=== PATIENT | female | born 1955 | race Caucasian/White ===

== ENCOUNTER 2021-12-21 06:22 | Day surgery (SDC) | payer OTHER ==
[2021-12-21] MEDS ORDERED: Lactated Ringers 1,000 ML IV ONE ×2 (06:44→07:13)
[2021-12-21] MEDS ORDERED: Reglan 10 MG/2 ML IV ONE (07:09)
[2021-12-21] MEDS ORDERED: Versed 2 MG/2 ML Injection IV PRN (07:09)
[2021-12-21] MEDS ORDERED: Pepcid 20 MG VIAL IV ONE ×2 (07:09→07:12)
[2021-12-21] MEDS ORDERED: Versed 2 MG/2 ML Injection ONE (07:12)
[2021-12-21] MEDS ORDERED: Reglan 10 MG/2 ML ONE (07:12)
[2021-12-21] MEDS ORDERED: CLINDAMYCIN-D5W 900 MG/50 ML*** 900 MG/50 ML BAG IV ONE (07:12)
[2021-12-21] MEDS ORDERED: CLINDAMYCIN-D5W 900 MG/50 ML*** 900 MG/50 ML BAG IV SCH (07:30)
[2021-12-21] MEDS ORDERED: Lactated Ringers 1,000 ML IV SCH (07:30)
[2021-12-21] MEDS ORDERED: Xylocaine-Mpf 2% 5 Ml Vial ONE (10:08)
[2021-12-21] MEDS ORDERED: Zofran 4 MG/2 ML VIAL ONE (10:08)
[2021-12-21] MEDS ORDERED: Zemuron 100 MG/10 ML ONE (10:08)
[2021-12-21] MEDS ORDERED: DIPRIVAN 200 MG/20 ML IV ONE (10:08)
[2021-12-21] MEDS ORDERED: Decadron 4 MG INJ ONE ×2 (10:08→12:06)
[2021-12-21] MEDS ORDERED: Quelicin Fliptop 200 MG/10 ML ONE (10:08)
[2021-12-21] MEDS ORDERED: SUBLIMAZE 100 MCG/2 ML ONE ×2 (10:09→13:36)
[2021-12-21] MEDS ORDERED: OFIRMEV 100 ML IV ONE (10:25)
[2021-12-21] MEDS ORDERED: Pre-Attached Lta Kit TP ONE (10:25)
[2021-12-21] MEDS ORDERED: Ephedrine Sulfate 50 MG/ML ONE (10:59)
[2021-12-21] MEDS ORDERED: Naropin 0.5% 30 ML VIAL ONE (12:06)
[2021-12-21] MEDS ORDERED: BRIDION 200MG/2ML IV ONE (12:27)
--- NOTE | 2021-12-21 12:44 | XRAY ---
Indication: Right calcaneal exostectomy. Intraoperative fluoroscopy provided for 36 seconds. 8 digital spot images submitted for interpretation demonstrates posterior calcaneal exostectomy. Correlate with intraoperative findings/report.
--- NOTE | 2021-12-21 14:05 | XRAY ---
36 seconds of fluoroscopy was used in surgery for a calcaneal exostectomy of right foot.
[2021-12-21 14:59] VITALS: BP 115/77; PULSE 69; O2SAT 97
--- NOTE | 2021-12-24 15:34 | OP ---
SURGERY DATE: 12/21/2021 SURGERY TIME: 1030 PREOPERATIVE DIAGNOSIS: 1. RIGHT FOOT PAIN. 2. CALCANEAL POSTERIOR SUPERIOR EXOSTOSIS. 3. ACHILLES TENDONITIS. 4. RETROCALCANEAL BURSITIS. POSTOPERATIVE DIAGNOSIS: 1. RIGHT FOOT PAIN. 2. CALCANEAL POSTERIOR SUPERIOR EXOSTOSIS. 3. ACHILLES TENDONITIS. 4. RETROCALCANEAL BURSITIS. PROCEDURE: 1. POSTERIOR SUPERIOR CALCANEAL EXOSTECTOMY. 2. REPAIR OF ACHILLES TENDON WITH DEBRIDEMENT AND ADVANCEMENT. SURGEON: Roland Heller D.P.M. AIRCRAFT SYSTEMS TECHNICIAN: None. ANESTHESIA: General plus a postoperative regional block. See anesthesia report for details. HEMOSTASIS: A thigh tourniquet set to 350 mm Hg for 70 minutes total tourniquet time. ESTIMATED BLOOD LOSS: Less than 5 cc. INJECTABLES: See anesthesia report for details. INDICATIONS FOR PROCEDURE: Henrietta is a very pleasant 65 y/o female who presented to my clinic with concerns over an extremely painful bump at the posterior aspect of her right foot. The patient indicates she has had this bump for some period of time. However, it has caused her more and more significant pain as she has been walking. She has failed physical therapy and conservative modalities of treatment for this issue and wishes to proceed with resection of the spurring at the posterior aspect of her heel as well as the calcaneal exostosis. The patient understands all risks, complications, and benefits which were described in this case to her in depth. The patient understands that there is a risk of infection, hematoma, seroma, possibility of delayed skin healing, delayed tendon to bone healing, and possible deep vein thrombosis due to working on the Achilles tendon as well as immobilization for any period of time postoperatively. Patient understands all these risks and wishes to proceed with surgical intervention. No guarantees were provided as to the outcome. It is with that we decided to proceed. DESCRIPTION OF PROCEDURE: The patient was brought into the OR. The patient was sedated on the cart. A thigh tourniquet was applied to the patient's right thigh and the patient was then transferred to the table in the prone position. At this time, the patient's right lower extremity was prepped and draped in the typical sterile fashion and lowered onto the surgical field. At this time, an Esmarch was utilized to exsanguinate the leg and the tourniquet was set to 350 mm Hg. At this time, a linear incision approximately 8 cm in length was performed at the area approximately 5 cm above the Achilles tendon attachment down to the plantar aspect of the heel. At this time, dissection was carried to the level of the peritenon with a full thickness flap and then reflected at the medial and lateral aspects. At this time, the Achilles tendon was measured and a linear incision was made 5 cm correlating with the amount of tendinosis that was seen on the MRI down to the insertion of the Achilles tendon on the posterior heel. At this time, an inverted T-type incision was carried out at the plantar aspect of the calcaneus and the Achilles tendon was reflected off of the heel bone. The Achilles tendon was debrided of any diseased appearing tissue until the thickness was debulked as well as the infected tissue appeared to be completely removed. Posterior to the Achilles tendon, the retrocalcaneal bursa was identified and appeared to be significantly inflamed and this was removed as well. At this time, attention was directed to the calcaneus where the posterior spur was first resected utilizing a sagittal saw and then the Erin's deformity was resected utilizing the same sagittal saw. This was checked under fluoroscopic guidance and deemed to be adequate. A power rasp was utilized to smooth the bone to a smooth surface and rough in the interface for the tendon attachment and regrowth throughout the healing process. At this time, the proximal JuggerKnots were grown into the calcaneus in a converging type fashion and advanced through the distal limbs of the Achilles tendon. Following this, these limbs were secured utilizing two 4.5 Quattro links in the distal aspect of the calcaneus in an inverted row type fashion. Following this, the central split of the Achilles tendon was debrided and repaired utilizing 2-0 Vicryl. Following this, 4-0 Vicryl was utilized to repair the peritenon and then following this, the subcutaneous tissue of the incision was repaired utilizing the 4-0 Monocryl as well. was utilized to coapt the skin edges. Tourniquet was left on at a total of 70 minutes total tourniquet time. A dressing consisting of Betadine, Adaptic, 4 X 4, Kerlex, and a well-padded posterior splint was applied to the patient's right leg. Patient was then provided a postoperative popliteal block. Patient then was reversed from anesthesia and returned to the PACU with vital signs stable and vascular status intact. The patient handled the anesthesia as well as the procedure without significant complication. Postoperative orders as indicated in the patient's discharge chart.
== END 2021-12-21 15:17 | disposition home or self-care (01) ==
LOC: SDC 06:22
PROVIDERS: ATTEND Podiatrist Foot & Ankle Surgery
DX: M76.61 Achilles tendinitis, right leg (principal); M79.671 Pain in right foot; M89.8X7 Other specified disorders of bone, ankle and foot; M77.51 Other enthesopathy of right foot and ankle
CPT/HCPCS: 27654; 28120; 64450; 64486; 73630; 76000; 76937; 76942; C1713; J0330; J1100; J2250; J2405; J2704; J2795; J3010

== ENCOUNTER 2024-02-18 12:13 | Observation (INO) | payer OTHER ==
--- NOTE | 2024-02-18 12:54 | ERPHSYRPT ---
- History of Present Illness Time Seen by Provider: 02/18/24 12:20 Source: patient, family Patient Subjective Stated Complaint: Dizziness. Triage Nursing Assessment: Patient brought into ED per EMS and transferred to bed with assist of 1. Patient A+O X 3. Patient's skin pink, warm and dry. Patient states she was at work and started feeling dizzy and like she was going to pass out. Patient states she had a headache yesterday and this am, but currently no pain. Patient reports her left ear feeling funny this am but denies pain or left ear. Patient stated she feels like she is spinning around the room. Patient denies pain or discomfort. Patient was nauseated when EMS picked up. Physician History: 68 years old female presented to the ER via EMS with complaints of feeling dizziness since morning, weak all over, spinning sensation and near syncopal episode prior to arrival. Patient reports she was having some nausea and dry heaving but no vomiting. Does report having some funny feeling in the left ear as well. Denies any chest pain palpitations or shortness of breath. Denies any visual disturbance, numbness tingling or focal weakness. Patient reports she feels even now with lying down that she is going to pass out. She has negative orthostatics and EKG is sinus rhythm with no ST elevations. Allergies/Adverse Reactions: Penicillins Allergy (Verified 02/18/24 12:18) Sulfa (Sulfonamide Antibiotics) Allergy (Verified 02/18/24 12:18) hormone Adverse Reaction (Uncoded 02/18/24 12:18) Home Medications: No Reportable Medications [No Reported Medications] 02/18/24 [History] Hx Influenza Vaccination/Date Given: Yes Hx Pneumococcal Vaccination/Date Given: No Immunizations Up to Date: Yes Travel Risk - International Travel Have you traveled outside of the country in past 3 weeks: No - Emerging Infectious Disease Are you exhibiting symptoms associated with any current EIDs: No - Review of Systems Constitutional: Fatigue, Weakness Eyes: No Symptoms Ears, Nose, & Throat: Ear Pain Respiratory: No Symptoms Cardiac: No Symptoms Abdominal/Gastrointestinal: Nausea Genitourinary Symptoms: No Symptoms Musculoskeletal: No Symptoms Skin: No Symptoms Neurological: Dizziness Psychological: No Symptoms Hematologic/Lymphatic: No Symptoms Immunological/Allergic: No Symptoms - Past Medical History Pertinent Past Medical History: Yes Neurological History: No Pertinent History ENT History: No Pertinent History Cardiac History: No Pertinent History Respiratory History: No Pertinent History Endocrine Medical History: No Pertinent History Musculoskeletal History: Osteoarthritis GI Medical History: Hernia History: No Pertinent History Psycho-Social History: No Pertinent History Female Reproductive Disorders: No Pertinent History Other Medical History: OA ON THE CALCANEOUS OF THE R FOOT. R KNEE OA. - Past Surgical History Past Surgical History: Yes Neuro Surgical History: No Pertinent History Cardiac: No Pertinent History Respiratory: No Pertinent History Gastrointestinal: Cholecystectomy Genitourinary: No Pertinent History Musculoskeletal: Other Female Surgical History: Hysterectomy, Section Other Surgical History: left knee surgery - Social History Smoking Status: Never smoker Exposure to second hand smoke: No Drug Use: none - Social Determinants of Health Will the patient participate in the screening: Yes Do you worry about a steady place to live?: No Do you have any problems with any of the following?: No known problems In the past 12 months,have you had to go without utilities?: No Transportation Issues: No Has anyone in your support network made you feel unsafe?: No Have you or anyone in your house had to go without enough: No - Nursing Vital Signs Nursing Vital Signs: Initial Vital Signs Temperature 97.6 F 02/18/24 12:24 Pulse Rate 71 02/18/24 12:24 Respiratory Rate 18 02/18/24 12:24 Blood Pressure 131/59 02/18/24 12:24 O2 Sat by Pulse Oximetry 96 02/18/24 12:24 Pain Scale Pain Intensity 0 - [place] Coma Scale Best Eye Response ([place]): (4) open spontaneously Best Verbal Response ([place]): (5) oriented Best Motor Response ([place]): (6) obeys commands [place] Total: 15 - Physical Exam General Appearance: no apparent distress, alert Eye Exam: bilateral eye: normal inspection, PERRL, EOMI Ears, Nose, Throat Exam: normal ENT inspection Neck Exam: normal inspection, non-tender, supple, full range of motion, No meningismus Respiratory: normal breath sounds, lungs clear Cardiovascular: regular rate/rhythm, normal heart sounds Gastrointestinal: soft, normal bowel sounds, No tenderness Back Exam: normal inspection, normal range of motion Extremity Exam: normal inspection, normal range of motion Mental Status: alert, oriented x 3, 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 Exam: normal hearing, normal speech, PERRL, abnormal eye position Coordination/Gait: normal finger to nose, normal gait, normal cerebellar function, negative Romberg's sign Motor/Sensory: no motor deficit, no sensory deficit, no pronator drift, negative Babinski's sign DTR: bicep (R): 2+, bicep (L): 2+, knee (R): 2+, knee (L): 2+ Skin Exam: normal color SpO2 Interpretation: normal SpO2: 96 O2 Delivery: Room Air - Course EKG Interpreted by Me: RATE (73), Sinus Rhythm, NORMAL AXIS, NORMAL INTERVALS, Non-specific ST Changes Ordered Tests: Active Orders 24 hr Category Date Time Status Produce Field Merchandiser STAT Care 02/18/24 12:52 Active EKG-ER Only STAT Care 02/18/24 12:51 Active IV Insertion STAT Care 02/18/24 12:51 Active Orthostatic Vital Signs STAT Care 02/18/24 12:51 Active CHEST 1 VIEW (PORTABLE) Stat Exams 02/18/24 12:51 Completed HEAD WITHOUT CONTRAST [CT] Stat Exams 02/18/24 12:52 Completed CBC W DIFF Stat Lab 02/18/24 13:06 Completed CMP Stat Lab 02/18/24 13:00 Completed Lactic Acid Stat Lab 02/18/24 13:12 Completed MAGNESIUM Stat Lab 02/18/24 13:00 Completed TROPONIN Q4H Lab 02/18/24 13:00 Completed TROPONIN Q4H Lab 02/18/24 17:00 Ordered TROPONIN Q4H Lab 02/18/24 21:00 Ordered UA W/RFX UR CULTURE Stat Lab 02/18/24 13:06 Completed Medication Summary Discontinued Medications Generic Name Dose Route Start Last Admin Trade Name Angelq PRN Reason Stop Dose Admin Sodium Chloride 1,000 mls @ 999 mls/hr 02/18/24 12:51 02/18/24 13:07 Sodium Chloride 0.9% 1000 Ml IV 02/18/24 13:51 999 mls/hr .Q1H1M STA Administration Sodium Chloride Confirm 02/18/24 12:56 Sodium Chloride 0.9% 1000 Ml Administered 02/18/24 12:57 Dose 1,000 mls @ ud .ROUTE .STK-MED ONE Meclizine HCl 25 mg 02/18/24 12:51 02/18/24 13:08 Meclizine Hcl 25 Mg Tablet PO 02/18/24 12:52 25 mg STAT ONE Administration Meclizine HCl Confirm 02/18/24 12:56 Meclizine Hcl 25 Mg Tablet Administered 02/18/24 12:57 Dose 25 mg .ROUTE .STK-MED ONE Metoclopramide HCl 10 mg 02/18/24 13:04 02/18/24 13:09 Metoclopramide Hcl 10 Mg/2 Ml Vial IV 02/18/24 13:05 10 mg STAT ONE Administration Metoclopramide HCl Confirm 02/18/24 13:05 Metoclopramide Hcl 10 Mg/2 Ml Vial Administered 02/18/24 13:06 Dose 10 mg .ROUTE .STK-MED ONE Ondansetron HCl 4 mg 02/18/24 12:52 02/18/24 13:05 Ondansetron Hcl 4 Mg/2 Ml Vial IV 02/18/24 12:53 Not Given STAT ONE Ondansetron HCl Confirm 02/18/24 12:56 Ondansetron Hcl 4 Mg/2 Ml Vial Administered 02/18/24 12:57 Dose 4 mg .ROUTE .STK-MED ONE Lab/Rad Data: Laboratory Result Diagrams 02/18/24 13:06 02/18/24 13:00 Laboratory Results 02/18/24 02/18/24 02/18/24 Range/Units 13:12 13:06 13:06 WBC 9.0 (3.98-10.04) x10^3/uL RBC 4.61 (3.93-5.22) x10^6/uL Hgb 13.9 (11.2-15.7) g/dL Hct 43.4 (34.1-44.9) % MCV 94.1 (79.4-94.8) fL MCH 30.2 (25.6-32.2) pg MCHC 32.0 L (32.2-35.5) g/dL RDW 11.9 (11.7-14.4) % Plt Count 189 (182-369) x10^3/uL MPV 9.7 (9.4-12.3) fL Gran % 68.6 (34.0-71.1) % Immature Gran % (Auto) 0.4 (0.001-0.429) % Nucleat RBC Rel Count 0.0 (0.00-0.2) % Eos # (Auto) 0.11 (0.04-0.36) x10^3/uL Immature Gran # (Auto) 0.04 H (0.001-0.031) x10^3u/L Absolute Lymphs (auto) 2.11 (1.18-3.74) x10^3/uL Absolute Monos (auto) 0.51 (0.24-0.86) x10^3/uL Absolute Nucleated RBC 0.00 (0.00-0.012) x10^3u/L Lymphocytes % 23.5 (19.3-51.7) % Monocytes % 5.7 (4.7-12.5) % Eosinophils % 1.2 (0.7-5.8) % Basophils % 0.6 (0.1-1.2) % Absolute Granulocytes 6.14 H (1.56-6.13) x10^3/uL Basophils # 0.05 (0.01-0.08) x10^3/uL Sodium (135-145) mmol/L Potassium (3.5-5.1) mmol/L Chloride (98-107) mmol/L Carbon Dioxide (22-30) mmol/L Anion Gap (5-15) MEQ/L BUN (7-17) mg/dL Creatinine (0.52-1.04) mg/dL Estimated GFR ML/MIN Glucose (74-106) mg/dL Lactic Acid 1.1 (0.4-2.0) Calcium (8.4-10.2) mg/dL Magnesium (1.6-2.3) mg/dL Total Bilirubin (0.2-1.3) mg/dL AST (14-36) U/L ALT (0-35) U/L Alkaline Phosphatase (38-126) U/L Troponin I (0.000-0.033) ng/mL Serum Total Protein (6.3-8.2) g/dL Albumin (3.5-5.0) g/dL Urine Color (Yellow) Urine Appearance (Clear) Urine pH (4.6-8.0) Ur Specific [place] (1.005-1.030) Urine Protein (Negative) Urine Glucose (UA) (Negative) mg/dL Urine Ketones (Negative) Urine Blood (Negative) Urine Nitrite (Negative) Urine Bilirubin (Negative) Urine Urobilinogen (0.2) mg/dL Ur Leukocyte Esterase (Negative) U Hyaline Cast (Auto) (0-2) /LPF Urine Microscopic RBC (0-5) /HPF Urine Microscopic WBC (0-5) /HPF Ur Epithelial Cells (None Seen) /HPF Urine Bacteria (None Seen) /HPF Urine Culture Reflexed (NO) Influenza Type A Ag NEGATIVE (NEGATIVE) Influenza Type B Ag NEGATIVE (NEGATIVE) RSV (PCR) NEGATIVE (NEGATIVE) SARS-CoV-2 (PCR) NEGATIVE (NEGATIVE) 02/18/24 02/18/24 02/18/24 Range/Units 13:06 13:00 13:00 WBC (3.98-10.04) x10^3/uL RBC (3.93-5.22) x10^6/uL Hgb (11.2-15.7) g/dL Hct (34.1-44.9) % MCV (79.4-94.8) fL MCH (25.6-32.2) pg MCHC (32.2-35.5) g/dL RDW (11.7-14.4) % Plt Count (182-369) x10^3/uL MPV (9.4-12.3) fL Gran % (34.0-71.1) % Immature Gran % (Auto) (0.001-0.429) % Nucleat RBC Rel Count (0.00-0.2) % Eos # (Auto) (0.04-0.36) x10^3/uL Immature Gran # (Auto) (0.001-0.031) x10^3u/L Absolute Lymphs (auto) (1.18-3.74) x10^3/uL Absolute Monos (auto) (0.24-0.86) x10^3/uL Absolute Nucleated RBC (0.00-0.012) x10^3u/L Lymphocytes % (19.3-51.7) % Monocytes % (4.7-12.5) % Eosinophils % (0.7-5.8) % Basophils % (0.1-1.2) % Absolute Granulocytes (1.56-6.13) x10^3/uL Basophils # (0.01-0.08) x10^3/uL Sodium 137 (135-145) mmol/L Potassium 3.5 (3.5-5.1) mmol/L Chloride 100 (98-107) mmol/L Carbon Dioxide 28 (22-30) mmol/L Anion Gap 12.3 (5-15) MEQ/L BUN 23 H (7-17) mg/dL Creatinine 0.66 (0.52-1.04) mg/dL Estimated GFR 96.7 ML/MIN Glucose 122 H (74-106) mg/dL Lactic Acid (0.4-2.0) Calcium 9.5 (8.4-10.2) mg/dL Magnesium 2.1 (1.6-2.3) mg/dL Total Bilirubin 0.90 (0.2-1.3) mg/dL AST 29 (14-36) U/L ALT 24 (0-35) U/L Alkaline Phosphatase 79 (38-126) U/L Troponin I < 0.012 (0.000-0.033) ng/mL Serum Total Protein 8.0 (6.3-8.2) g/dL Albumin 4.7 (3.5-5.0) g/dL Urine Color Yellow (Yellow) Urine Appearance Turbid A (Clear) Urine pH 8.0 (4.6-8.0) Ur Specific [place] 1.020 (1.005-1.030) Urine Protein Negative (Negative) Urine Glucose (UA) Negative (Negative) mg/dL Urine Ketones Trace A (Negative) Urine Blood Negative (Negative) Urine Nitrite Negative (Negative) Urine Bilirubin Negative (Negative) Urine Urobilinogen 0.2 (0.2) mg/dL Ur Leukocyte Esterase Negative (Negative) U Hyaline Cast (Auto) NONE SEEN (0-2) /LPF Urine Microscopic RBC 0-2 (0-5) /HPF Urine Microscopic WBC 3-5 (0-5) /HPF Ur Epithelial Cells None Seen (None Seen) /HPF Urine Bacteria None Seen (None Seen) /HPF Urine Culture Reflexed NO (NO) Influenza Type A Ag (NEGATIVE) Influenza Type B Ag (NEGATIVE) RSV (PCR) (NEGATIVE) SARS-CoV-2 (PCR) (NEGATIVE) - Progress Progress: improved Progress Note: 02/18/24 15:26 68 years old is evaluated in the ER for vertiginous symptoms with near syncopal episode prior to arrival. Patient has essentially nonfocal neuroexam throughout stay in the ER. EKG is normal sinus rhythm with no acute ischemic changes and negative troponins. Normal white count, fairly unremarkable chemistries. No UTI. CT head and chest x-ray are negative for any acute findings. She is given meclizine along with Reglan and fluids, feeling much improved on reevaluation but still feels a little dizzy. I suspect peripheral vertigo with her left inner ear symptoms but patient syncope needs further workup. Discussed with Dr. Feng and patient is being admitted for observation. I have shared the results of workup with patient and family and plan of admission which they understand and agree. Discussed with .: Justice Will see patient in: hospital (observation) Counseled pt/family regarding: diagnosis, need for follow-up, rad results Medical Desision Making - Independent Historian Additional History obtained from: Child, Hospice Registered Nurse/EMT - Discussion of managment Care discussed with:: hospitalist Reviewed:: Test results Agreed on:: Treatment plan, place in obs Will see patient: in hospital - Diagnostic Testing Diagnostic test were ordered, analyzed, and reviewed by me: Yes Radiological Interpretation: Reviewed by me, Teleradiologist Report - Risk of complications The pt has a mod risk of morbidity or mortality based on: Need for prescription drug management The pt has a high risk of morbidity or mortality based on: Decision regarding hospitilization or escalation of hosp level of care - Departure Departure Disposition: Observation Clinical Impression: Near syncope, Dizziness Condition: Stable Critical Care Time: No Referrals: JERI GATICA MD [Primary Care Provider] - Follow up/PCP as directed
[2024-02-18] MEDS ORDERED: Sodium Chloride 0.9% 1000 ML 1,000 ML ONE (12:56)
[2024-02-18] MEDS ORDERED: ANTIVERT 25 MG ONE (12:56)
[2024-02-18] MEDS ORDERED: Zofran 4 MG/2 ML VIAL ONE (12:56)
[2024-02-18] MEDS ORDERED: Reglan 10 MG/2 ML ONE (13:05)
[2024-02-18] MEDS: Zofran 4 MG/2 ML VIAL IV ONE (13:05)
[2024-02-18] MEDS: Sodium Chloride 0.9% 1000 ML 1,000 ML IV STA (13:07)
[2024-02-18] MEDS: ANTIVERT 25 MG PO ONE (13:08)
[2024-02-18] MEDS: Reglan 10 MG/2 ML IV ONE (13:09)
[2024-02-18 13:28] LABS: Absolute Neutrophil Ct (ANC) 6.14 x10^3/uL (1.56-6.13); BASOPHIL % 0.6 % (0.1-1.2); Basophil (Absolute #) 0.05 x10^3/uL (0.01-0.08); Eosinophil % 1.2 % (0.7-5.8); Eosinophil (Absolute #) 0.11 x10^3/uL (0.04-0.36); Hematocrit 43.4 % (34.1-44.9); Hemoglobin 13.9 g/dL (11.2-15.7); IMMATURE GRAN # 0.04 x10^3u/L (0.001-0.031); IMMATURE GRAN % 0.4 % (0.001-0.429); Lymphocyte (Absolute #) 2.11 x10^3/uL (1.18-3.74); Lymphocytes % 23.5 % (19.3-51.7); Mean Cell Volume 94.1 fL (79.4-94.8); Mean Corpuscular Hemoglobin 30.2 pg (25.6-32.2); Mean Platelet Volume 9.7 fL (9.4-12.3); Monocyte (Absolute #) 0.51 x10^3/uL (0.24-0.86); Monocytes % 5.7 % (4.7-12.5); Neutrophil % 68.6 % (34.0-71.1); Platelet Count 189 x10^3/uL (182-369); Red Blood Count 4.61 x10^6/uL (3.93-5.22); Red Cell Distribution Width 11.9 % (11.7-14.4)
[2024-02-18 13:31] LABS: Appearance Turbid (Clear); Bacteria None Seen /HPF (None Seen); Bilirubin Negative (Negative); Blood Negative (Negative); Epithelial Cells None Seen /HPF (None Seen); Glucose, Urine Negative (Negative); Hyaline Casts NONE SEEN /LPF (0-2); Ketones Trace (Negative); Leukocyte Esterase Negative (Negative); Nitrite Negative (Negative); Protein,Urine Dip Negative (Negative); RBC 0-2 /HPF (0-5); Urobilinogen 0.2 mg/dL (0.2)
[2024-02-18 13:35] LABS: ALBUMIN 4.7 g/dL (3.5-5.0); ANION GAP 12.3 MEQ/L (5-15); BILIRUBIN,TOTAL 0.9 mg/dL (0.2-1.3); Calcium 9.5 mg/dL (8.4-10.2); Creatinine 1 0.66 mg/dL (0.52-1.04); EST GLOMERULAR FILTRATION RATE 96.7 ML/MIN; MAGNESIUM 2.1 mg/dL (1.6-2.3); Potassium 3.5 mmol/L (3.5-5.1)
[2024-02-18 13:58] LABS: INFLUENZA A NEGATIVE (NEGATIVE); INFLUENZA B NEGATIVE (NEGATIVE); RESPIRATORY SYNCTIAL VIRUS NEGATIVE (NEGATIVE); SARS-CoV-2 Xpert Express NEGATIVE (NEGATIVE)
--- NOTE | 2024-02-18 14:19 | XRAY ---
CLINICAL HISTORY: dizziness/near syncope COMPARISON: No prior studies are available for comparison. TECHNIQUE: An X-ray image of the chest is obtained in AP poratble projection. FINDINGS: Pulmonary Parenchyma: Lungs are clear bilaterally. No evidence of consolidation, collapse, or focal opacities. No pulmonary nodules are identified. No evidence of pleural effusion or pleural thickening. An elevated right diaphragmatic cupola is seen. Heart and Mediastinum: Heart size and shape are normal. No mediastinal widening or masses. No hilar or mediastinal lymphadenopathy. Bony Thorax: Bony thorax appears intact without fractures or deformities. Soft Tissues: Soft tissues overlying the chest wall are unremarkable. IMPRESSION: 1. An elevated right diaphragmatic cupola is seen. 2. No acute cardiopulmonary abnormalities are identified. Electronically Signed by: Jessa Medina MD. (02/18/2024 14:15:45 EST)
--- NOTE | 2024-02-18 14:41 | XRAY ---
CLINICAL HISTORY: near syncope/dizziness COMPARISON: None. TECHNIQUE: Axial non-contrast CT scan of the brain was performed from the skull base to the high parietal region. One of the following dose reduction techniques were utilized for this exam: Automated exposure control, adjustment of the mA and/or kV according to patient size, use of iterative reconstruction. FINDINGS: Brain Parenchyma: Normal attenuation of the cerebral hemispheres, cerebellum, and brainstem. No evidence of acute infarct or mass effect. Ventricular System: Ventricles are normal in size and configuration. No evidence of hydrocephalus or ventricular enlargement. Subarachnoid Spaces: Normal sulci and cisterns. No evidence of subarachnoid hemorrhage or extra-axial fluid collections. Cerebellum and Brainstem: Normal size and signal. No masses, lesions, or areas of abnormal signal. Orbits: Normal appearance of the globes, optic nerves, and extraocular muscles. No evidence of orbital masses or abnormal signals. Bilateral optic head calcific foci noted senile changes Sinuses: Clear paranasal sinuses. No evidence of sinusitis or mucosal thickening. Mastoid Air Cells: Clear mastoid air cells. No evidence of mastoiditis. Skull and Meninges: Normal skull morphology. IMPRESSION: 1. No acute intracranial abnormalities. 2. Normal non-contrast CT scan of the brain. Electronically Signed by: Jessa Medina MD. (02/18/2024 14:38:10 EST)
--- NOTE | 2024-02-18 15:56 | PCM.HP ---
History of Present Illness - Chief Complaint Chief Complaint: Dizziness/near syncope Date: 02/18/24 History of Present Illness: is a 68 year old female with PMHX of OA and hernia. She presented to the ER today via EMS with complaints of feeling dizziness since morning, weak all over, spinning sensation and near syncopal episode prior to arrival. Patient reports she was having some nausea and dry heaving but no vomiting. Does report having some funny feeling in the left ear as well. Denies any chest pain palpitations or shortness of breath. Denies any visual disturbance, numbness tingling or focal weakness. Ine the ER patient reported she felt it e olga with lying down that she is going to pass out. In the ER she had negative orthostatics and EKG sinus rhythm with no ST elevations. She feels all of her sxs have resolved since admission. Will continue medication for nausea and IVF. Will monitor trops and place on tele. Will obtain echo and carotid duplex. Will have PT eval tomorrow. Will likely d/c tomorrow if no abnormal findings. - Review of Systems Constitutional: No Fever, No Chills Eyes: No Symptoms Ears, Nose, & Throat: No Symptoms Respiratory: No Cough, No Short Of Breath Cardiac: No Chest Pain, No Edema, No Syncope Abdominal/Gastrointestinal: Nausea, No Abdominal Pain, No Vomiting, No Diarrhea Genitourinary Symptoms: No Dysuria Musculoskeletal: No Back Pain, No Neck Pain Skin: No Rash Neurological: Dizziness, No Focal Weakness, No Sensory Changes Psychological: No Symptoms Endocrine: No Symptoms Hematologic/Lymphatic: No Symptoms Immunological/Allergic: No Symptoms Medications & Allergies Home Medications: Home Medication List No Reportable Medications [No Reported Medications] 02/18/24 [History Confirmed 02/18/24] Allergies/Adverse Reactions: Allergies Allergy/AdvReac Type Severity Reaction Status Date / Time Penicillins Allergy Verified 02/18/24 12:18 Sulfa (Sulfonamide Allergy Verified 02/18/24 12:18 Antibiotics) hormone AdvReac Uncoded 02/18/24 12:18 - Past Medical History Past Medical History: Yes Neurological History: No Pertinent History ENT History: No Pertinent History Cardiac History: No Pertinent History Respiratory History: No Pertinent History Endocrine Medical History: No Pertinent History Musculoskelatal History: Osteoarthritis GI Medical History: Hernia History: No Pertinent History Pyscho-Social History: No Pertinent History Reproductive Disorders: No Pertinent History Comment: OA ON THE CALCANEOUS OF THE R FOOT. R KNEE OA. - Past Surgical History Past Surgical History: Yes Neuro Surgical History: No Pertinent History Cardiac History: No Pertinent History Respiratory Surgery: No Pertinent History GI Surgical History: Cholecystectomy Genitourinary Surgical Hx: No Pertinent History Musculskeletal Surgical Hx: Other Female Surgical History: Hysterectomy, Section Other Surgical History: left knee surgery Significant Family History: no pertinent family hx - Social History Smoking Status: Never smoker Exposure to second hand smoke: No Alcohol: None Drug Use: none - Social Determinants of Health Will the patient participate in the screening: Yes Do you worry about a steady place to live?: No Do you have any problems with any of the following?: No known problems In the past 12 months,have you had to go without utilities?: No Have you or anyone in your house had to go without enough: No Transportation Issues: No Has anyone in your support network made you feel unsafe?: No - Physical Exam Vital Signs: Vital Signs - 24 hr Temp Pulse Resp BP BP Pulse Ox 02/18/24 15:29 96 02/18/24 15:00 68 17 121/72 96 02/18/24 14:30 72 17 126/68 96 02/18/24 14:00 78 18 112/64 95 02/18/24 13:30 86 18 125/74 94 L 02/18/24 12:30 75 17 118/58 96 02/18/24 12:24 97.6 F 69 12 131/59 131/59 96 General Appearance: no apparent distress, alert, obese Neurologic Exam: alert, oriented x 3, cooperative, normal mood/affect, nml cerebellar function, nml station & gait, sensation nml, No motor deficits Eye Exam: PERRL/EOMI, eyes nml inspection Ears, Nose, Throat Exam: normal ENT inspection, TMs normal, pharynx normal, moist mucous membranes Neck Exam: normal inspection, non-tender, supple, full range of motion Respiratory Exam: normal breath sounds, lungs clear, No respiratory distress Cardiovascular Exam: regular rate/rhythm, normal heart sounds, normal peripheral pulses Gastrointestinal/Abdomen Exam: soft, normal bowel sounds, No tenderness, No mass Back Exam: normal inspection, normal range of motion, No CVA tenderness, No vertebral tenderness Extremity Exam: normal inspection, normal range of motion, pelvis stable Skin Exam: normal color, warm, dry, No rash Lymphatic Exam: No adenopathy Results - Labs Lab/Micro Results: Lab Results-Last 24 Hours 02/18/24 02/18/24 02/18/24 Range/Units 13:00 13:00 13:06 WBC (3.98-10.04) x10^3/uL RBC (3.93-5.22) x10^6/uL Hgb (11.2-15.7) g/dL Hct (34.1-44.9) % MCV (79.4-94.8) fL MCH (25.6-32.2) pg MCHC (32.2-35.5) g/dL RDW (11.7-14.4) % Plt Count (182-369) x10^3/uL MPV (9.4-12.3) fL Gran % (34.0-71.1) % Immature Gran % (Auto) (0.001-0.429) % Nucleat RBC Rel Count (0.00-0.2) % Eos # (Auto) (0.04-0.36) x10^3/uL Immature Gran # (Auto) (0.001-0.031) x10^3u/L Absolute Lymphs (auto) (1.18-3.74) x10^3/uL Absolute Monos (auto) (0.24-0.86) x10^3/uL Absolute Nucleated RBC (0.00-0.012) x10^3u/L Lymphocytes % (19.3-51.7) % Monocytes % (4.7-12.5) % Eosinophils % (0.7-5.8) % Basophils % (0.1-1.2) % Absolute Granulocytes (1.56-6.13) x10^3/uL Basophils # (0.01-0.08) x10^3/uL Sodium 137 (135-145) mmol/L Potassium 3.5 (3.5-5.1) mmol/L Chloride 100 (98-107) mmol/L Carbon Dioxide 28 (22-30) mmol/L Anion Gap 12.3 (5-15) MEQ/L BUN 23 H (7-17) mg/dL Creatinine 0.66 (0.52-1.04) mg/dL Estimated GFR 96.7 ML/MIN Glucose 122 H (74-106) mg/dL Lactic Acid (0.4-2.0) Calcium 9.5 (8.4-10.2) mg/dL Magnesium 2.1 (1.6-2.3) mg/dL Total Bilirubin 0.90 (0.2-1.3) mg/dL AST 29 (14-36) U/L ALT 24 (0-35) U/L Alkaline Phosphatase 79 (38-126) U/L Troponin I < 0.012 (0.000-0.033) ng/mL Serum Total Protein 8.0 (6.3-8.2) g/dL Albumin 4.7 (3.5-5.0) g/dL Urine Color Yellow (Yellow) Urine Appearance Turbid A (Clear) Urine pH 8.0 (4.6-8.0) Ur Specific [place] 1.020 (1.005-1.030) Urine Protein Negative (Negative) Urine Glucose (UA) Negative (Negative) mg/dL Urine Ketones Trace A (Negative) Urine Blood Negative (Negative) Urine Nitrite Negative (Negative) Urine Bilirubin Negative (Negative) Urine Urobilinogen 0.2 (0.2) mg/dL Ur Leukocyte Esterase Negative (Negative) U Hyaline Cast (Auto) NONE SEEN (0-2) /LPF Urine Microscopic RBC 0-2 (0-5) /HPF Urine Microscopic WBC 3-5 (0-5) /HPF Ur Epithelial Cells None Seen (None Seen) /HPF Urine Bacteria None Seen (None Seen) /HPF Urine Culture Reflexed NO (NO) Influenza Type A Ag (NEGATIVE) Influenza Type B Ag (NEGATIVE) RSV (PCR) (NEGATIVE) SARS-CoV-2 (PCR) (NEGATIVE) 02/18/24 02/18/24 02/18/24 Range/Units 13:06 13:06 13:12 WBC 9.0 (3.98-10.04) x10^3/uL RBC 4.61 (3.93-5.22) x10^6/uL Hgb 13.9 (11.2-15.7) g/dL Hct 43.4 (34.1-44.9) % MCV 94.1 (79.4-94.8) fL MCH 30.2 (25.6-32.2) pg MCHC 32.0 L (32.2-35.5) g/dL RDW 11.9 (11.7-14.4) % Plt Count 189 (182-369) x10^3/uL MPV 9.7 (9.4-12.3) fL Gran % 68.6 (34.0-71.1) % Immature Gran % (Auto) 0.4 (0.001-0.429) % Nucleat RBC Rel Count 0.0 (0.00-0.2) % Eos # (Auto) 0.11 (0.04-0.36) x10^3/uL Immature Gran # (Auto) 0.04 H (0.001-0.031) x10^3u/L Absolute Lymphs (auto) 2.11 (1.18-3.74) x10^3/uL Absolute Monos (auto) 0.51 (0.24-0.86) x10^3/uL Absolute Nucleated RBC 0.00 (0.00-0.012) x10^3u/L Lymphocytes % 23.5 (19.3-51.7) % Monocytes % 5.7 (4.7-12.5) % Eosinophils % 1.2 (0.7-5.8) % Basophils % 0.6 (0.1-1.2) % Absolute Granulocytes 6.14 H (1.56-6.13) x10^3/uL Basophils # 0.05 (0.01-0.08) x10^3/uL Sodium (135-145) mmol/L Potassium (3.5-5.1) mmol/L Chloride (98-107) mmol/L Carbon Dioxide (22-30) mmol/L Anion Gap (5-15) MEQ/L BUN (7-17) mg/dL Creatinine (0.52-1.04) mg/dL Estimated GFR ML/MIN Glucose (74-106) mg/dL Lactic Acid 1.1 (0.4-2.0) Calcium (8.4-10.2) mg/dL Magnesium (1.6-2.3) mg/dL Total Bilirubin (0.2-1.3) mg/dL AST (14-36) U/L ALT (0-35) U/L Alkaline Phosphatase (38-126) U/L Troponin I (0.000-0.033) ng/mL Serum Total Protein (6.3-8.2) g/dL Albumin (3.5-5.0) g/dL Urine Color (Yellow) Urine Appearance (Clear) Urine pH (4.6-8.0) Ur Specific [place] (1.005-1.030) Urine Protein (Negative) Urine Glucose (UA) (Negative) mg/dL Urine Ketones (Negative) Urine Blood (Negative) Urine Nitrite (Negative) Urine Bilirubin (Negative) Urine Urobilinogen (0.2) mg/dL Ur Leukocyte Esterase (Negative) U Hyaline Cast (Auto) (0-2) /LPF Urine Microscopic RBC (0-5) /HPF Urine Microscopic WBC (0-5) /HPF Ur Epithelial Cells (None Seen) /HPF Urine Bacteria (None Seen) /HPF Urine Culture Reflexed (NO) Influenza Type A Ag NEGATIVE (NEGATIVE) Influenza Type B Ag NEGATIVE (NEGATIVE) RSV (PCR) NEGATIVE (NEGATIVE) SARS-CoV-2 (PCR) NEGATIVE (NEGATIVE) - Radiology Impressions Radiology Exams & Impressions: Radiology Procedures Category Date Time Status CHEST 1 VIEW (PORTABLE) Stat Exams 02/18/24 12:51 Completed HEAD WITHOUT CONTRAST [CT] Stat Exams 02/18/24 12:52 Completed Assessment/Plan (1) Near syncope Current Visit: Yes Status: Acute Assessment & Plan: - 1 L NS gave in ER - cont. IV fluids - Echo - carotid duplex - tele - trend trops - CBC, CMP reviewed. - UA reviewed - CXR and CT head reviewed - Orthostats negative - EKG - Tele - vitals stable - Flu/COVID/ RSV negative (2) Dizziness Current Visit: Yes Status: Acute Assessment & Plan: - Meclizine gave in ER- continue Q 6 PRN - PT eval Code(s): R42 - DIZZINESS AND GIDDINESS (3) Nausea Current Visit: Yes Status: Acute Assessment & Plan: - reglan and zofran gave in ER - Continue Zofran IV PRN Code(s): R11.0 - NAUSEA (4) Obesity (BMI 30-39.9) Current Visit: Yes Status: Acute Assessment & Plan: - advised diet and exercise control VTE: SCD's Next of KIN: daughter D/C plan: tomorrow Code status: Full Code(s): E66.9 - OBESITY, UNSPECIFIED Telemedicine Encounter - Telemedicine Encounter Telemedicine Encounter: "The entirety of this encounter was performed via Telemedicine" This visit was performed using real-time audio and video connection between my location and thepatients locationwith the assistance of a surrogateat the patients location. Written or verbal consent was obtained from the patient/guardian to perform this visit [email or web address]. Any patient questions regarding the telemedicine interaction were answered.
[2024-02-18] MEDS ORDERED: Zofran 4 MG/2 ML VIAL IV PRN (16:30)
[2024-02-18] MEDS ORDERED: ANTIVERT 25 MG PO PRN (16:31)
[2024-02-18] MEDS: Sodium Chloride 0.9% 1000 ML 1,000 ML IV SCH (17:04)
[2024-02-19 04:51] LABS: Hematocrit 37.6 % (34.1-44.9); Hemoglobin 12.1 g/dL (11.2-15.7); Mean Cell Volume 92.2 fL (79.4-94.8); Mean Corpuscular Hemoglobin 29.7 pg (25.6-32.2); Mean Corpuscular Hgb Concent. 32.2 g/dL (32.2-35.5); Mean Platelet Volume 9.3 fL (9.4-12.3); Platelet Count 181 x10^3/uL (182-369); Red Blood Count 4.08 x10^6/uL (3.93-5.22); Red Cell Distribution Width 12.4 % (11.7-14.4); White Blood Count 7.4 x10^3/uL (3.98-10.04)
[2024-02-19 06:11] LABS: ALBUMIN 3.8 g/dL (3.5-5.0); ANION GAP 9.3 MEQ/L (5-15); BILIRUBIN,TOTAL 1.1 mg/dL (0.2-1.3); Creatinine 1 0.74 mg/dL (0.52-1.04); EST GLOMERULAR FILTRATION RATE 89.2 ML/MIN; Potassium 4.1 mmol/L (3.5-5.1); Total Protein 6.7 g/dL (6.3-8.2)
--- NOTE | 2024-02-19 09:30 | PCM.DS ---
Discharge Summary Date of Admission: 02/18/24 15:48 Date of Discharge: 02/19/24 Admitting Physician: GOPI KOEHLER MD Primary Care Provider: JERI GATICA MD Allergies Allergies Penicillins Allergy (Verified 02/18/24 12:18) Sulfa (Sulfonamide Antibiotics) Allergy (Verified 02/18/24 12:18) hormone Adverse Reaction (Uncoded 02/18/24 12:18) Hospital Summary - Hospital Course Hospital Course: 02/18/24 is a 68 year old female with PMHX of OA and hernia. She presented to the ER today via EMS with complaints of feeling dizziness since morning, weak all over, spinning sensation and near syncopal episode prior to arrival. Patient reports she was having some nausea and dry heaving but no vomiting. Does report having some funny feeling in the left ear as well. Denies any chest pain palpitations or shortness of breath. Denies any visual disturbance, numbness tingling or focal weakness. Ine the ER patient reported she felt it even with lying down that she is going to pass out. In the ER she had negative orthostatics and EKG sinus rhythm with no ST elevations. She feels all of her sxs have resolved since admission. Will continue medication for nausea and IVF. Will monitor trops and place on tele. Will obtain echo and carotid duplex. Will have PT eval tomorrow. Will likely d/c tomorrow if no abnormal findings. 02/19/24 Pt resting in bed. She had no overnight events. Carotid duplex negative and echo pending reading and will need OP f/u with PCP to discuss. She has a strong family hx of heart disease. She would like to d/c today if no other concerns. IV fluids stopped. Labs overall non-concerning. She denies CP, SOB, abd. pain, N/V/D. - Vitals & Intake/Output Vital Signs: Vital Signs Temperature 96.0 F 02/19/24 07:20 Pulse Rate 75 02/19/24 07:20 Respiratory Rate 18 02/19/24 07:20 Blood Pressure 114/55 02/19/24 07:20 O2 Sat by Pulse Oximetry 94 L 02/19/24 07:20 Intake & Output: Intake & Output 02/16/24 02/17/24 02/18/24 02/19/24 11:59 11:59 11:59 11:59 Intake Total 3 Balance 1883 Weight 109.2 kg - Lab Result Diagrams: 02/19/24 04:50 02/19/24 04:50 Lab Results-Last 24 Hrs: Lab Results-Last 24 Hours 02/18/24 02/18/24 02/18/24 Range/Units 13:00 13:00 13:06 WBC (3.98-10.04) x10^3/uL RBC (3.93-5.22) x10^6/uL Hgb (11.2-15.7) g/dL Hct (34.1-44.9) % MCV (79.4-94.8) fL MCH (25.6-32.2) pg MCHC (32.2-35.5) g/dL RDW (11.7-14.4) % Plt Count (182-369) x10^3/uL MPV (9.4-12.3) fL Gran % (34.0-71.1) % Immature Gran % (Auto) (0.001-0.429) % Nucleat RBC Rel Count (0.00-0.2) % Eos # (Auto) (0.04-0.36) x10^3/uL Immature Gran # (Auto) (0.001-0.031) x10^3u/L Absolute Lymphs (auto) (1.18-3.74) x10^3/uL Absolute Monos (auto) (0.24-0.86) x10^3/uL Absolute Nucleated RBC (0.00-0.012) x10^3u/L Lymphocytes % (19.3-51.7) % Monocytes % (4.7-12.5) % Eosinophils % (0.7-5.8) % Basophils % (0.1-1.2) % Absolute Granulocytes (1.56-6.13) x10^3/uL Basophils # (0.01-0.08) x10^3/uL Sodium 137 (135-145) mmol/L Potassium 3.5 (3.5-5.1) mmol/L Chloride 100 (98-107) mmol/L Carbon Dioxide 28 (22-30) mmol/L Anion Gap 12.3 (5-15) MEQ/L BUN 23 H (7-17) mg/dL Creatinine 0.66 (0.52-1.04) mg/dL Estimated GFR 96.7 ML/MIN Glucose 122 H (74-106) mg/dL Lactic Acid (0.4-2.0) Calcium 9.5 (8.4-10.2) mg/dL Magnesium 2.1 (1.6-2.3) mg/dL Total Bilirubin 0.90 (0.2-1.3) mg/dL AST 29 (14-36) U/L ALT 24 (0-35) U/L Alkaline Phosphatase 79 (38-126) U/L Troponin I < 0.012 (0.000-0.033) ng/mL Serum Total Protein 8.0 (6.3-8.2) g/dL Albumin 4.7 (3.5-5.0) g/dL Urine Color Yellow (Yellow) Urine Appearance Turbid A (Clear) Urine pH 8.0 (4.6-8.0) Ur Specific [place] 1.020 (1.005-1.030) Urine Protein Negative (Negative) Urine Glucose (UA) Negative (Negative) mg/dL Urine Ketones Trace A (Negative) Urine Blood Negative (Negative) Urine Nitrite Negative (Negative) Urine Bilirubin Negative (Negative) Urine Urobilinogen 0.2 (0.2) mg/dL Ur Leukocyte Esterase Negative (Negative) U Hyaline Cast (Auto) NONE SEEN (0-2) /LPF Urine Microscopic RBC 0-2 (0-5) /HPF Urine Microscopic WBC 3-5 (0-5) /HPF Ur Epithelial Cells None Seen (None Seen) /HPF Urine Bacteria None Seen (None Seen) /HPF Urine Culture Reflexed NO (NO) Influenza Type A Ag (NEGATIVE) Influenza Type B Ag (NEGATIVE) RSV (PCR) (NEGATIVE) SARS-CoV-2 (PCR) (NEGATIVE) 02/18/24 02/18/24 02/18/24 Range/Units 13:06 13:06 13:12 WBC 9.0 (3.98-10.04) x10^3/uL RBC 4.61 (3.93-5.22) x10^6/uL Hgb 13.9 (11.2-15.7) g/dL Hct 43.4 (34.1-44.9) % MCV 94.1 (79.4-94.8) fL MCH 30.2 (25.6-32.2) pg MCHC 32.0 L (32.2-35.5) g/dL RDW 11.9 (11.7-14.4) % Plt Count 189 (182-369) x10^3/uL MPV 9.7 (9.4-12.3) fL Gran % 68.6 (34.0-71.1) % Immature Gran % (Auto) 0.4 (0.001-0.429) % Nucleat RBC Rel Count 0.0 (0.00-0.2) % Eos # (Auto) 0.11 (0.04-0.36) x10^3/uL Immature Gran # (Auto) 0.04 H (0.001-0.031) x10^3u/L Absolute Lymphs (auto) 2.11 (1.18-3.74) x10^3/uL Absolute Monos (auto) 0.51 (0.24-0.86) x10^3/uL Absolute Nucleated RBC 0.00 (0.00-0.012) x10^3u/L Lymphocytes % 23.5 (19.3-51.7) % Monocytes % 5.7 (4.7-12.5) % Eosinophils % 1.2 (0.7-5.8) % Basophils % 0.6 (0.1-1.2) % Absolute Granulocytes 6.14 H (1.56-6.13) x10^3/uL Basophils # 0.05 (0.01-0.08) x10^3/uL Sodium (135-145) mmol/L Potassium (3.5-5.1) mmol/L Chloride (98-107) mmol/L Carbon Dioxide (22-30) mmol/L Anion Gap (5-15) MEQ/L BUN (7-17) mg/dL Creatinine (0.52-1.04) mg/dL Estimated GFR ML/MIN Glucose (74-106) mg/dL Lactic Acid 1.1 (0.4-2.0) Calcium (8.4-10.2) mg/dL Magnesium (1.6-2.3) mg/dL Total Bilirubin (0.2-1.3) mg/dL AST (14-36) U/L ALT (0-35) U/L Alkaline Phosphatase (38-126) U/L Troponin I (0.000-0.033) ng/mL Serum Total Protein (6.3-8.2) g/dL Albumin (3.5-5.0) g/dL Urine Color (Yellow) Urine Appearance (Clear) Urine pH (4.6-8.0) Ur Specific [place] (1.005-1.030) Urine Protein (Negative) Urine Glucose (UA) (Negative) mg/dL Urine Ketones (Negative) Urine Blood (Negative) Urine Nitrite (Negative) Urine Bilirubin (Negative) Urine Urobilinogen (0.2) mg/dL Ur Leukocyte Esterase (Negative) U Hyaline Cast (Auto) (0-2) /LPF Urine Microscopic RBC (0-5) /HPF Urine Microscopic WBC (0-5) /HPF Ur Epithelial Cells (None Seen) /HPF Urine Bacteria (None Seen) /HPF Urine Culture Reflexed (NO) Influenza Type A Ag NEGATIVE (NEGATIVE) Influenza Type B Ag NEGATIVE (NEGATIVE) RSV (PCR) NEGATIVE (NEGATIVE) SARS-CoV-2 (PCR) NEGATIVE (NEGATIVE) 02/18/24 02/18/24 02/19/24 Range/Units 17:00 21:19 04:50 WBC 7.4 (3.98-10.04) x10^3/uL RBC 4.08 (3.93-5.22) x10^6/uL Hgb 12.1 (11.2-15.7) g/dL Hct 37.6 (34.1-44.9) % MCV 92.2 (79.4-94.8) fL MCH 29.7 (25.6-32.2) pg MCHC 32.2 (32.2-35.5) g/dL RDW 12.4 (11.7-14.4) % Plt Count 181 L (182-369) x10^3/uL MPV 9.3 L (9.4-12.3) fL Gran % (34.0-71.1) % Immature Gran % (Auto) (0.001-0.429) % Nucleat RBC Rel Count (0.00-0.2) % Eos # (Auto) (0.04-0.36) x10^3/uL Immature Gran # (Auto) (0.001-0.031) x10^3u/L Absolute Lymphs (auto) (1.18-3.74) x10^3/uL Absolute Monos (auto) (0.24-0.86) x10^3/uL Absolute Nucleated RBC (0.00-0.012) x10^3u/L Lymphocytes % (19.3-51.7) % Monocytes % (4.7-12.5) % Eosinophils % (0.7-5.8) % Basophils % (0.1-1.2) % Absolute Granulocytes (1.56-6.13) x10^3/uL Basophils # (0.01-0.08) x10^3/uL Sodium (135-145) mmol/L Potassium (3.5-5.1) mmol/L Chloride (98-107) mmol/L Carbon Dioxide (22-30) mmol/L Anion Gap (5-15) MEQ/L BUN (7-17) mg/dL Creatinine (0.52-1.04) mg/dL Estimated GFR ML/MIN Glucose (74-106) mg/dL Lactic Acid (0.4-2.0) Calcium (8.4-10.2) mg/dL Magnesium (1.6-2.3) mg/dL Total Bilirubin (0.2-1.3) mg/dL AST (14-36) U/L ALT (0-35) U/L Alkaline Phosphatase (38-126) U/L Troponin I < 0.012 < 0.012 (0.000-0.033) ng/mL Serum Total Protein (6.3-8.2) g/dL Albumin (3.5-5.0) g/dL Urine Color (Yellow) Urine Appearance (Clear) Urine pH (4.6-8.0) Ur Specific [place] (1.005-1.030) Urine Protein (Negative) Urine Glucose (UA) (Negative) mg/dL Urine Ketones (Negative) Urine Blood (Negative) Urine Nitrite (Negative) Urine Bilirubin (Negative) Urine Urobilinogen (0.2) mg/dL Ur Leukocyte Esterase (Negative) U Hyaline Cast (Auto) (0-2) /LPF Urine Microscopic RBC (0-5) /HPF Urine Microscopic WBC (0-5) /HPF Ur Epithelial Cells (None Seen) /HPF Urine Bacteria (None Seen) /HPF Urine Culture Reflexed (NO) Influenza Type A Ag (NEGATIVE) Influenza Type B Ag (NEGATIVE) RSV (PCR) (NEGATIVE) SARS-CoV-2 (PCR) (NEGATIVE) 02/19/24 Range/Units 04:50 WBC (3.98-10.04) x10^3/uL RBC (3.93-5.22) x10^6/uL Hgb (11.2-15.7) g/dL Hct (34.1-44.9) % MCV (79.4-94.8) fL MCH (25.6-32.2) pg MCHC (32.2-35.5) g/dL RDW (11.7-14.4) % Plt Count (182-369) x10^3/uL MPV (9.4-12.3) fL Gran % (34.0-71.1) % Immature Gran % (Auto) (0.001-0.429) % Nucleat RBC Rel Count (0.00-0.2) % Eos # (Auto) (0.04-0.36) x10^3/uL Immature Gran # (Auto) (0.001-0.031) x10^3u/L Absolute Lymphs (auto) (1.18-3.74) x10^3/uL Absolute Monos (auto) (0.24-0.86) x10^3/uL Absolute Nucleated RBC (0.00-0.012) x10^3u/L Lymphocytes % (19.3-51.7) % Monocytes % (4.7-12.5) % Eosinophils % (0.7-5.8) % Basophils % (0.1-1.2) % Absolute Granulocytes (1.56-6.13) x10^3/uL Basophils # (0.01-0.08) x10^3/uL Sodium 140 (135-145) mmol/L Potassium 4.1 (3.5-5.1) mmol/L Chloride 106 (98-107) mmol/L Carbon Dioxide 29 (22-30) mmol/L Anion Gap 9.3 (5-15) MEQ/L BUN 15 (7-17) mg/dL Creatinine 0.74 (0.52-1.04) mg/dL Estimated GFR 89.2 ML/MIN Glucose 106 (74-106) mg/dL Lactic Acid (0.4-2.0) Calcium 9.0 (8.4-10.2) mg/dL Magnesium (1.6-2.3) mg/dL Total Bilirubin 1.10 (0.2-1.3) mg/dL AST 26 (14-36) U/L ALT 23 (0-35) U/L Alkaline Phosphatase 63 (38-126) U/L Troponin I (0.000-0.033) ng/mL Serum Total Protein 6.7 (6.3-8.2) g/dL Albumin 3.8 (3.5-5.0) g/dL Urine Color (Yellow) Urine Appearance (Clear) Urine pH (4.6-8.0) Ur Specific [place] (1.005-1.030) Urine Protein (Negative) Urine Glucose (UA) (Negative) mg/dL Urine Ketones (Negative) Urine Blood (Negative) Urine Nitrite (Negative) Urine Bilirubin (Negative) Urine Urobilinogen (0.2) mg/dL Ur Leukocyte Esterase (Negative) U Hyaline Cast (Auto) (0-2) /LPF Urine Microscopic RBC (0-5) /HPF Urine Microscopic WBC (0-5) /HPF Ur Epithelial Cells (None Seen) /HPF Urine Bacteria (None Seen) /HPF Urine Culture Reflexed (NO) Influenza Type A Ag (NEGATIVE) Influenza Type B Ag (NEGATIVE) RSV (PCR) (NEGATIVE) SARS-CoV-2 (PCR) (NEGATIVE) - Radiology Exams Ordered Rad Exams-Entire Visit: Radiology Procedures Category Date Time Status CAROTID BILATERAL [US] Routine Exams 02/19/24 16:18 Ordered CHEST 1 VIEW (PORTABLE) Stat Exams 02/18/24 12:51 Completed ECHO W/2D AND DOPPLER [US] Routine Exams 02/19/24 16:18 Ordered HEAD WITHOUT CONTRAST [CT] Stat Exams 02/18/24 12:52 Completed - Procedures and Test Procedures and Tests throughout Hospitalization: Therapy Orders & Screens 02/18/24 15:56 PT Eval & Treat ( Order) ONCE Reason for Eval:: dizziness Diagnosis: Dizziness/near syncope Discharge Exam General Appearance: no apparent distress, alert Neurologic Exam: alert, oriented x 3, cooperative, normal mood/affect, nml cerebellar function, sensation nml, No motor deficits Eye Exam: PERRL, EOMI, eyes nml inspection Ears, Nose, Throat Exam: normal ENT inspection, pharynx normal, moist mucous membranes Neck Exam: normal inspection, non-tender, supple, full range of motion Respiratory Exam: normal breath sounds, lungs clear, No respiratory distress Cardiovascular Exam: regular rate/rhythm, normal heart sounds Gastrointestinal/Abdomen Exam: soft, No tenderness, No mass Pelvic Exam: deferred Rectal Exam: deferred Back Exam: normal inspection, normal range of motion, No CVA tenderness, No vertebral tenderness Extremity Exam: normal inspection, normal range of motion Skin Exam: normal color, warm, dry Final Diagnosis/Problem List - Final Discharge Diagnosis/Problem (1) Near syncope Current Visit: Yes Status: Acute (2) Dizziness Current Visit: Yes Status: Acute Code(s): R42 - DIZZINESS AND GIDDINESS (3) Nausea Current Visit: Yes Status: Acute Code(s): R11.0 - NAUSEA (4) Obesity (BMI 30-39.9) Current Visit: Yes Status: Acute Assessment & Plan: (1) Near syncope Current Visit: Yes Status: Acute Assessment & Plan: - 1 L NS gave in ER - cont. IV fluids - Echo - carotid duplex - tele - trend trops - CBC, CMP reviewed. - UA reviewed - CXR and CT head reviewed - Orthostats negative - EKG - Tele - vitals stable - Flu/COVID/ RSV negative 02/18 - no overnight events- feels better - IVF stopped - Echo- pending- will need to F/u with PCP OP for results - carotid duplex: Impression: Left and right carotid arteries of the neck negative for critical stenosis/obstruction. Velocity measurements and ratios also negative for hemodynamically significant flow-limiting stenosis. - CBC, CMP reviewed - PT eval (2) Dizziness Current Visit: Yes Status: Acute Assessment & Plan: - Meclizine gave in ER- continue Q 6 PRN - PT eval 02/18 - pending Code(s): R42 - DIZZINESS AND GIDDINESS (3) Nausea Current Visit: Yes Status: Acute Assessment & Plan: - reglan and zofran gave in ER - Continue Zofran IV PRN Code(s): R11.0 - NAUSEA (4) Obesity (BMI 30-39.9) Current Visit: Yes Status: Acute Assessment & Plan: - advised diet and exercise control Code(s): E66.9 - OBESITY, UNSPECIFIED Code(s): E66.9 - OBESITY, UNSPECIFIED - Discharge Discharge Date: 02/19/24 Disposition: Home, Self-Care Condition: Stable Prescriptions: New Meclizine HCl 25 mg [Antivert 25 mg] 25 mg PO Q6H PRN PRN 8 Days #30 tablet PRN Reason: Dizziness Instructions: Syncope (fainting) - Discharge instructions Follow up with: MICHELLE LAUREANO NP [NON-STAFF PHY W/O PRIVILEGES] - Office will call patient (Requested new pt referral and sent records to Michelle Laureano's office. Currently, pending acceptance. Office to call patient with appointment (if accepted).)
[2024-02-19 11:24] VITALS: BP 117/63; PULSE 71; RESP 16; TEMP 96.8; O2SAT 93
--- NOTE | 2024-02-19 12:28 | XRAY ---
Indication: Near syncope. Two-dimensional sonogram and color Doppler imaging carotid arteries of the neck performed. Comparison: None Examination right carotid circulation demonstrates minimal eccentric calcified plaquing in proximal internal carotid artery. Widely patent common carotid, carotid bulb, and external carotid arteries. PSV CCA is 100 cm/s. PSV ICA is 74 cm/s. ICA/CCA ratio is 0.7. Normal antegrade vertebral artery flow. Examination the left carotid circulation demonstrates minimal intimal thickening carotid bulb, internal carotid, and external carotid arteries. Widely patent common carotid artery. PSV CCA is 93 cm/s. PSV ICA is 107 cm/s. ICA/CCA ratio is 1.2. Normal antegrade vertebral artery flow. Impression: Left and right carotid arteries of the neck negative for critical stenosis/obstruction. Velocity measurements and ratios also negative for hemodynamically significant flow-limiting stenosis.
== END 2024-02-19 14:05 | disposition home or self-care (01) ==
LOC: ED 12:13 → MED SURG 15:48
PROVIDERS: ADMIT Internal Medicine; ATTEND Internal Medicine
DX: R55 Syncope and collapse (principal); R42 Dizziness and giddiness; R11.0 Nausea; E66.9 Obesity, unspecified
CPT/HCPCS: 0241U; 36415; 70450; 71045; 80053; 81001; 83605; 83735; 84484; 85025; 85027; 93005; 93041; 93268; 93306; 93880; 96360; 96374; 99285; J2405; Q3014; A9270-GY; G0378